=== PATIENT | female | born 1985 | race Caucasian/White ===

== ENCOUNTER 2022-10-13 13:02 | Emergency (ER) | payer BC, SELFPAY ==
[2022-10-13 13:12] VITALS: BP 161/91; PULSE 95; RESP 16; TEMP 36.8; O2SAT 99
--- NOTE | 2022-10-13 13:22 | ED.FEMALEGU ---
HPI - Female Genitourinary General Chief complaint: Urogenital-Female Stated complaint: uti Time Seen by Provider: 10/13/22 13:18 Source: patient and RN notes reviewed Mode of arrival: ambulatory Limitations: no limitations History of Present Illness HPI Narrative: Patient presents today complaining of dysuria, frequency, and mild back pain since yesterday. Denies hematuria or abdominal pain. No recent antibiotic use. Patient took a dose of azo yesterday for symptoms. Related Data Allergies Allergy/AdvReac Type Severity Reaction Status Date / Time tree and shrub pollen Allergy Unknown Unknown Verified 10/13/22 13:12 Review of Systems Review of Systems: CONSTITUTIONAL: Denies body aches, fever, chills, or sweats. EYES: Denies visual changes, redness, or discharge. ENT: Denies rhinorrhea, congestion, sore throat, or otalgia. CARDIOVASCULAR: Denies chest pain, palpitations, or edema. RESPIRATORY: Denies cough or dyspnea. GASTROINTESTINAL: Denies abdominal pain, nausea, vomiting, or diarrhea. GENITOURINARY: + dysuria, frequency SKIN: Denies rash, itching, or wounds. MUSCULOSKELETAL: Denies joint pain, or myalgia.+ mild back pain NEUROLOGIC: Denies headache, numbness, tingling, or weakness. PSYCH: Denies depression or anxiety. PMFSH Surgical History Surgical History History of tonsillectomy Abrams teeth extracted Family History Family History Father Hypertension Sibling Depression Grandparent Alcoholism Malignant neoplasm of prostate Social History Social History Smoking status: Never smoker Alcohol intake: current Alcohol use details: 2-3 per year Substance use: never Sexual Orientation (if Verbalized by the Patient): Lesbian, Lance, or Homosexual Comments At time of signature, I have reviewed and agree with nursing past medical, surgical, social and family history unless otherwise noted. Please see nursing chart for further information. There is no relevant family history pertinent to the presenting complaint Exam Narrative: GENERAL: Well-appearing, well-nourished, and in no acute distress. HEAD: Normocephalic, atraumatic. EYES: EOMI. No redness or drainage. Conjunctivae normal. ENT: Mucous membranes pink and moist. NECK: Normal AROM. CHEST: No respiratory distress. Clear to auscultation. HEART: Regular rate and rhythm. No murmur appreciated. ABDOMEN: Soft, nontender, nondistended, normal active bowel sounds.-CVAT EXTREMITIES: Normal range of motion. No edema. SKIN: Warm, dry, no rash. Capillary refill normal. Normal skin turgor. NEURO: No focal deficits. Alert and oriented x3. Gait steady. PSYCH: Normal affect. No signs of depression or anxiety. Course Course Level of Care: Express Care Visit Vital Signs Vital signs: Vital Signs Temperature 98.2 F 10/13/22 13:12 Pulse Rate 95 10/13/22 13:12 Respiratory Rate 16 10/13/22 13:12 Blood Pressure 161/91 H 10/13/22 13:12 Pulse Oximetry 99 10/13/22 13:12 Temperature 98.2 F 10/13/22 13:12 Pulse Rate 95 10/13/22 13:12 Respiratory Rate 16 10/13/22 13:12 Blood Pressure 161/91 H 10/13/22 13:12 Pulse Oximetry 99 10/13/22 13:12 Reviewed. Pt has been instructed to follow up with her PCP regarding her elevated blood pressure today. MDM - Female Genitourinary MDM Narrative Medical decision making narrative: Urinalysis is suggestive of infection. Will treat with Keflex. Anticipatory guidance given. Differential Diagnosis Differential diagnosis: Likely urinary tract infection, vaginitis, cystitis and other (Pyelonephritis, interstitial cystitis) Lab Data Attestation: I reviewed the patient's lab results. Labs: Urine Glucose Negative Reference Ra
== END 2022-10-13 13:28 | disposition home or self-care (01) ==
PROVIDERS: Emergency Provider Nurse Practitioner; PCP Family Medicine
DX: N30.01 Acute cystitis with hematuria (principal)
CPT/HCPCS: 81003; 87086; 87088; 99213; G0463